=== PATIENT | female | born 2000 | race African-American/Black ===

== ENCOUNTER 2018-06-03 10:51 | Emergency (ER) | payer MEDICAID ==
[2018-06-03 11:01] VITALS: BP 117/67
--- NOTE | 2018-06-03 12:23 | ED Physician Documentation ---
History of Present Illness - Stated complaint Stated Complaint: SWELLING IN THROAT - Chief complaint Chief Complaint: Heent - History obtained from History obtained from: Patient - History of Present Illness Timing: How many days ago (3) Pain level max: 5 Pain level now: 0 Quality: sore Radiates to: no Improved by: nothing Worsened by: nothing Associated symptoms: swollen glands - Additonal information Additional information: 17 y/o female who denies PMH/PSH and here with complain of sorethroat the past 3 days that is worse when swallowing. Denies any fever, nasal congest ion, cough. States had oral sex once with someone she will probably not see again and would like to know if she was exposed to STD orally and in the urine. Denies any vaginal discharge or pelvic pain. Review of Systems Ten Systems: 10 systems reviewed and negative Constitutional: denies: Fever, Chills, Myalgias Ears: denies: Ear pain Nose: denies: Rhinorrhea / runny nose, Congestion, Sinus pressure / pain Throat: reports: Sore throat. denies: Dental pain / toothache, Oral lesions / sores Cardiac: denies: Chest pain / pressure Respiratory: denies: Cough : denies: Dysuria, Missed period Skin: denies: Rash Neurologic: denies: Generalized weakness PD PAST MEDICAL HISTORY - Present Medications Home Medications: Ambulatory Orders Medication Instructions Recorded Confirmed No Known Home Medications 06/03/18 06/03/18 - Allergies Allergies/Adverse Reactions: Allergies Allergy/AdvReac Type Severity Reaction Status Date / Time No Known Drug Allergies Allergy Verified 06/03/18 11:01 PD ED PE NORMAL - Vitals Vital signs reviewed: Yes - General General: Alert and oriented X 3, No acute distress, Well developed/nourished - HEENT HEENT: PERRL, Ears normal, Moist mucous membranes, Other (Mild erythema of posterior pharynx. Tonsils with white exudate but not swollen) - Neck Neck: Supple, no meningeal sign, Other (Anterior cervical adenopathy - 1 on each side, tender to touch.) - Cardiac Cardiac: RRR, No murmur - Respiratory Respiratory: No respiratory distress, Clear bilaterally - Abdomen Abdomen: Normal bowel sounds, Soft, Non tender, Non distended - Back Back: No CVA TTP - Derm Derm: Warm and dry, No rash - Extremities Extremities: No deformity - Neuro Neuro: Alert and oriented X 3 - Psych Psych: Normal mood, Normal affect Results - Vitals Vitals: Vital Signs - 24 hr 06/03/18 10:55 Temperature 36.6 C Heart Rate 92 Respiratory 14 Rate Blood Pressure 117/67 O2 Saturation 96 Oxygen O2 Source Room air - Labs Labs: Laboratory Tests 06/03/18 06/03/18 11:06 12:15 Ur Specific [place] >=1.030 H Urine HCG, Qual NEGATIVE Group A Strep Rapid Negative PD MEDICAL DECISION MAKING - ED course Complexity details: re-evaluated patient ([id number] sitting the chair in no acute distress.Throat and urine culture sent. Patient informed that the results will not be resulted for about 2-3 days.), considered differential (viral pharyngitis, strep, STD exposure), d/w patient ([id number] Informed of negative rapid strep and pending cultures. Pt expressed want to be check for STD but does not want prophylaxis antibiotic treatment) Departure - Departure Disposition: 01 Home, Self Care Clinical Impression: Sore throat Condition: Good Instructions: ED Pharyngitis Viral Report Pending Comments: For fever and pain control take [id number] Tylenol and/or Motrin. Drink lots of fluids. You may use warm liquids and lozenges to soothe the throat. Your throat and urine cultures are pending. Follow-up with your primary doctor. If worse return to the emergency room.
[2018-06-03 12:40] LABS: HCG UR QUAL NEGATIVE
[2018-06-06 05:31] LABS: C.TRACHOMATIC RNA TMA THROAT NOT DETECTED; N.GONORRHOEAE RNA TMA THROAT NOT DETECTED
== END 2018-06-03 13:59 | disposition home or self-care (01) ==
LOC: ED 10:51
DX: J02.9 Acute pharyngitis, unspecified (principal)
CPT/HCPCS: 81025; 87070; 87430; 87491; 87591; 99282; 99283